=== PATIENT | female | born 1960 | race Caucasian/White ===

== ENCOUNTER 2023-10-04 11:34 | Observation (INO) ==
[2023-10-04 12:11] LABS: ABS Eosinophils 0.1 10^3/uL (0.0-0.5); ABS Lymphocytes 2.6 10^3/uL (1.0-4.8); ABS Monocytes 0.7 10^3/uL (0.0-0.9); ABS Neutrophils 3.7 10^3/uL (1.5-7.6); Eosinophil % 1.3 %; Hematocrit 45.8 % (35-45); Hemoglobin 15.6 g/dL (11.5-14.3); Lymphocyte % 36.8 %; Mean Corpuscular Hemoglobin 31.5 pg (27-33); Mean Corpuscular Volume 92.7 fL (80-97); Mean Platelet Volume 8.9 fL (7.5-11.2); Platelet Count 250 10^3/uL (150-450); Red Blood Count 4.94 10^6/uL (3.63-4.92); Red Cell Distribution Width 12.6 % (12-17); White Blood Count 7.1 10^3/uL (3.8-11.8)
[2023-10-04 12:55] LABS: Activated Partial Thrombo Time 30.7 seconds (26.0-38.0); INR 0.87 (0.83-1.13)
[2023-10-04 13:23] LABS: Albumin 4.6 g/dL (3.2-5.2); Albumin/Globulin Ratio 1.7 (1-3); Calcium 10.1 mg/dL (8.6-10.3); Creatinine, Serum 0.65 mg/dL (0.51-0.95); Globulin 2.7 g/dL (2-4); HDL Cholesterol 69.7 mg/dL; Indirect Bilirubin 0.5 mg/dL (0.3-1.0); Potassium 4.3 mmol/L (3.5-5.0); Total Bilirubin 0.5 mg/dL (0.2-1.0); Total Protein 7.3 g/dL (6.4-8.9); eGFR CKD-EPI 98.3 (>60)
[2023-10-04 13:29] LABS: Urine Appearance Clear; Urine Bilirubin Negative (Negative); Urine Blood Negative (Negative); Urine Color Colorless; Urine Glucose Negative (Negative); Urine Ketones Negative (Negative); Urine Nitrite Negative (Negative); Urine Protein Negative (Negative); Urine Specific Gravity 1.029 (1.002-1.030); Urine Urobilinogen Negative (Negative); Urine pH 7.5 (5.0-8.0)
[2023-10-04] MEDS: Enoxaparin 40 MG/0.4 ML SYR SUBCUT SCH (18:16)
[2023-10-05 09:56] VITALS: BP 127/76
[2023-10-05] MEDS: Sulfur Hexaflouride MICROSPHR 25 MG VIAL IV ONE (13:05)
== END 2023-10-05 14:05 | disposition home or self-care (01) ==
LOC: EDHOLD 11:34 → ED 11:34 → MEDTELE 20:55
PROVIDERS: ADMIT Internal Medicine; ATTEND Internal Medicine